=== PATIENT | female | born 1940 | race Caucasian/White ===

== ENCOUNTER 2017-05-05 20:42 | Inpatient (IN) | payer OTHER ==
--- NOTE | 2017-05-05 20:56 | PDOC ---
History of Present Illness - General History Source: Patient, Family (Son) Exam Limitations: No Limitations - History of Present Illness Initial Comments: 05/05/17 21:14 The patient is a 76 year old female with a significant past medical history of vertigo, HTN, HCL, and stomach cancer (treated), who presents to the ER with nausea, headache, and dizziness for two days. Patient is accompanied by son. As per son, the time of last known well was 19:00 last night. Since then, son has been noticing that patient is forgetting words and complained of nausea and dizziness. Patient woke up today with similar symptoms as last night. She states she took an extra medication of HTN earlier today without relief of symptoms. Son reports that patient has also complained of diffuse abdominal pain today. She states she has loss of appetite secondary to the symptoms and only had toast for the whole day. Denies numbness, paresthesia, weakness Denies syncope Denies trauma Denies fever, chills, cough Denies vomiting, diarrhea <Zully Ash - Last Filed: 05/05/17 21:39> <Dionna Cochran - Last Filed: 05/05/17 23:02> - General Chief Complaint: CVA/TIA Stated Complaint: DIZZY Time Seen by Provider: 05/05/17 20:52 Past History <Zully Ash - Last Filed: 05/05/17 21:39> - Past Medical History Cancer: Yes (STOMACH) HTN: Yes Hypercholesterolemia: Yes - Psycho/Social/Smoking Cessation Hx Suicidal Ideation: No Smoking History: Never smoked Have you smoked in the past 12 months: No Number of Cigarettes Smoked Daily: 0 Hx Alcohol Use: No Drug/Substance Use Hx: No <Dionna Cochran - Last Filed: 05/05/17 23:02> - Past Medical History Allergies/Adverse Reactions: Allergies Allergy/AdvReac Type Severity Reaction Status Date / Time sulfamethoxazole Allergy Verified 05/05/17 20:51 [From Bactrim] trimethoprim [From Bactrim] Allergy Verified 05/05/17 20:51 Home Medications: Ambulatory Orders Metoprolol Tartrate 25 mg PO BID 03/13/16 Rosuvastatin Calcium [Crestor] 10 mg PO DAILY 03/13/16 Meclizine HCl [Antivert -] 12.5 mg PO TID #21 tablet 03/14/16 Review of Systems - Review of Systems Comments:: 05/05/17 21:16 CONSTITUTIONAL: Present: (+) loss of appetite Absent: fever, chills, diaphoresis, generalized weakness, malaise HEENT: Absent: rhinorrhea, nasal congestion, throat pain, throat swelling, difficulty swallowing, mouth swelling, ear pain, eye pain, visual Changes CARDIOVASCULAR: Absent: chest pain, syncope, palpitations, irregular heart rate, lightheadedness , peripheral edema RESPIRATORY: Absent: cough, shortness of breath, dyspnea with exertion, orthopnea, wheezing, stridor, hemoptysis GASTROINTESTINAL: Present: (+) nausea (+) abdominal pain Absent: abdominal distension, vomiting, diarrhea, constipation, melena, hematochezia GENITOURINARY: Absent: dysuria, frequency, urgency, hesitancy, hematuria, flank pain, genital pain MUSCULOSKELETAL: Absent: myalgia, arthralgia, joint swelling SKIN: Absent: rash, itching, pallor HEMATOLOGIC/IMMUNOLOGIC: Absent: easy bleeding, easy bruising, lymphadenopathy, frequent infections ENDOCRINE: Absent: unexplained weight gain, unexplained weight loss, heat intolerance, cold intolerance NEUROLOGIC: Present: (+) Dizziness, (+) changes in speech (+) headache Absent: focal weakness or paresthesias, unsteady gait, seizure, mental status changes, bladder or bowel incontinence PSYCHIATRIC: Absent: anxiety, depression, suicidal or homicidal ideation, hallucinations. <Uts,Zully - Last Filed: 05/05/17 21:39> *Physical Exam - Vital Signs Last Vital Signs Temp Pulse Resp BP Pulse Ox 97.7 F 87 19 152/84 97 05/05/17 20:52 05/05/17 20:52 05/05/17 20:52 05/05/17 20:52 05/05/17 20:52 - Physical Exam Comments: 05/05/17 21:14 GENERAL: Well developed, well nourished. Appears anxious. Awake and alert to person, but not to place or time. Normocephalic, atraumatic. PERRLA, EOMI. No conjunctival pallor. Sclera are non- icteric. Moist mucous membranes. Oropharynx is clear. NECK: Supple. Full ROM. No JVD. Carotid pulses 2+ and symmetric, without bruits. No thyromegaly. No lymphadenopathy. CARDIOVASCULAR: Regular rate and rhythm. No murmurs, rubs, or gallops. Distal pulses are 2+ and symmetric. PULMONARY: No evidence of respiratory distress. Lungs clear to auscultation bilaterally. No wheezing, rales or rhonchi. ABDOMINAL: Romberg sign negative. Soft. Non-tender. Non-distended. No rebound or guarding. No organomegaly. Normoactive bowel sounds. MUSCULOSKELETAL Normal range of motion at all joints. No bony deformities or tenderness. No CVA tenderness. EXTREMITIES: No cyanosis. No clubbing. No edema. No calf tenderness. SKIN: Warm and dry. Normal capillary refill. No rashes. No jaundice. NEUROLOGICAL: Nose to nose exam normal. Cranial nerves 2-12 intact. No deficits to light touch and temperature in face, upper extremities and lower extremities. No motor deficits in the in face, upper extremities and lower extremities. Normoreflexic in the upper and lower extremities. Toes are down-going bilaterally. Gait is normal without ataxia. PSYCHIATRIC: Cooperative. Good eye contact. Appropriate mood and affect. <Zully Ash - Last Filed: 05/05/17 21:39> NIH Stroke Scale - Last Known Well Date/Time & Onset Date Last Known Well: 05/04/17 Time Last Known Well: 19:00 - Initial Evaluation Level of consciousness: Alert Ask patient the month and their age: Answers one correctly Ask patient to open & close eyes; make fist and let go: Obeys both correctly Best gaze (horizontal eye movement): Normal Visual field testing: No visual field loss Facial paresis (Show teeth/raise eyebrows/close eyes tight): Normal symmetrical movement Motor Function: Left Arm: Normal Motor Function: Right Arm: Normal (extends arm 90 (or 45) degrees for 10 seconds without drift Motor Function: Left Leg: Normal (extends leg 30 degrees for 5 seconds without drift) Motor Function: Right Leg: Normal (extends leg 30 degrees for 5 seconds without drift) Limb Ataxia: No ataxia Sensory(Use pinprick test arms,legs,trunk,face/side to side): Normal Best language (Describe picture, name items, read sentences): No Aphasia Dysarthria (read several words): Normal articulation Extinction and Inattention: No abnormality - Total Score NIH Stroke Scale Score: 1 <Dionna Cochran - Last Filed: 05/05/17 23:02> Critical Care Time/MDM Note Total Critical Care Time: 30 Critical Care Statement: The care of this patient involved high complexity decision making to prevent further life threatening deterioration of the patient 's condition and/or to evalute & treat vital organ system(s) failure or risk of failure. <Zully Ash - Last Filed: 05/05/17 21:39> - Medical Decision Making Note: 05/05/17 22:16 Patient Name: Anisha Pearson THIS IS A PRELIMINARY REPORT FROM [facility] IMAGES: 167 EXAM DATE AND TIME: 2017-05-05 20:57:46.0 EXAM: CT HEAD WITHOUT CONTRAST No acute brain parenchymal abnormality. No hemorrhage, mass or acute territorial infarct. Age-related involutional changes and chronic small vessel ischemic changes. Clear visualized paranasal sinuses. Visualized mastoid air cells clear. THIS DOCUMENT HAS BEEN ELECTRONICALLY SIGNED 05/05/17 22:16 Pt will be admitted to the hospitalist 05/05/17 22:17 EKG:NSR <Dionna Cochran - Last Filed: 05/05/17 23:02> Discharge Disposition <Zully sAh - Last Filed: 05/05/17 21:39> - Discharge Dispostion Admit: Yes <Dionna Cochran - Last Filed: 05/05/17 23:02> - Diagnosis Cerebrovascular accident (CVA), Vertigo, Confusion - Discharge Dispostion Condition at time of disposition: Guarded
[2017-05-05 21:06] VITALS: BMI 25.4
[2017-05-05] MEDS ORDERED: MECLIZINE HCL 25 MG TABLET (FP) PO ONE (21:12)
[2017-05-05] MEDS ORDERED: METOCLOPRAMIDE HCL INJECTION 10 MG/2 ML VIAL IVPB ONE (21:12)
[2017-05-05] MEDS ORDERED: MECLIZINE HCL 25 MG TABLET (FP) ONE (21:13)
[2017-05-05] MEDS ORDERED: SODIUM CHLORIDE 0.9% 500 ML INFUS.BAG IV ONE (21:13)
[2017-05-05] MEDS ORDERED: METOCLOPRAMIDE HCL INJECTION 10 MG/2 ML VIAL ONE (21:13)
[2017-05-05 21:46] LABS: BASOPHIL 0.8 % (0-2.0); EOSINOPHIL 0.3 % (0-4.5); MCH 33.2 pg (25.7-33.7); MCHC 33.8 g/dl (32.0-36.0); MEAN CELL VOLUME 98.3 fl (80-96); MEAN PLT VOLUME 8.1 fl (7.5-11.1); NEUTROPHILS 74.3 % (42.8-82.8); PLATELET COUNT 295 K/MM3 (134-434); RDW 12.3 % (11.6-15.6); WHITE BLOOD COUNT 13.6 K/mm3 (4.0-10.0)
[2017-05-05 22:12] LABS: ANION GAP 10 (8-16); CALCIUM 9.5 mg/dL (8.5-10.1); CO2 27 mmol/L (21-32); CREATININE 0.8 mg/dL (0.55-1.02); GLUCOSE,RANDOM 121 mg/dL (74-106); SGOT/AST 17 U/L (15-37); SGPT/ALT 25 U/L (12-78)
[2017-05-05 22:13] LABS: ALK PHOS 83 U/L (45-117); BILIRUBIN,TOTAL 0.8 mg/dL (0.2-1.0); INR 1.03 (0.82-1.09); PROTHROMBIN TIME (PATIENT) 11.3 SEC (9.98-11.88); TOT PROT 7.9 g/dl (6.4-8.2)
[2017-05-05] MEDS ORDERED: ACETAMINOPHEN 1000 MG/100 ML VIAL (NON FORMULARY) IVPB ONE (23:02)
[2017-05-05] MEDS ORDERED: ACETAMINOPHEN INJECTION 100 ML IVPB ONE (23:09)
--- NOTE | 2017-05-05 23:52 | PN ---
<Shantel Marie - Last Filed: 05/05/17 23:51> Teaching Attending Note Name of Resident: Shaan Pennington <Polo Christensen - Last Filed: 05/06/17 02:17> Teaching Attending Note ATTENDING PHYSICIAN STATEMENT I saw and evaluated the patient. I reviewed the resident's note and discussed the case with the resident. I agree with the resident's findings and plan as documented. SUBJECTIVE: The patient is a 76 year old female, accompanied by son, who presented to the ER with nausea, headache, and dizziness for two days. As per son, the patient was last known well at 19:00 last night. Since then, son has noticed that the patient is forgetting words and has complained of nausea and dizziness. She stated she took an extra dose of her HTN medication (Metoprolol) earlier today without relief of symptoms. Son reported that patient has also endorsed diffuse abdominal pain today. Patient endorsed decreased appetite secondary to the symptoms. Denied syncope Denied trauma Denied vomiting, diarrhea Denied fever, chills, cough Denied numbness, paresthesia, weakness Denied dysuria, hematuria, frequency, and hesitancy PAST MEDICAL HISTORY: HTN, HLD, Hypercholesterolemia, and stomach cancer ( treated) PAST SURGICAL HISTORY: No significant history reported FAMILY HISTORY: No pertinent history reported SOCIAL HISTORY: Denied history of smoking. Denied alcohol use. Denied recreational drug use. ALLERGIES: Sulfamethoxazole, trimethoprim MEDICATIONS: Reported taking an extra dose Metoprolol Tartrate (25 mg) OBJECTIVE: Last Vital Signs 3 Temp Pulse Resp BP Pulse Ox 97.7 F 74 20 156/64 96 05/05/17 20:52 05/05/17 21:46 05/05/17 21:46 05/05/17 21:46 05/05/17 21:51 Physical Examination: GENERAL: Awake, A&O x2, in no acute distress. HEENT: Atraumatic. PERRLA, EOMI. Moist mucosa. No JVD. No tongue or uvula deviation. LUNGS: No distress, speaks full sentences, clear to auscultation bilaterally HEART: Regular rate and rhythm, normal S1 and S2, no murmurs, rubs or gallops, peripheral pulses normal and equal bilaterally. ABDOMEN: Soft, nontender, normoactive bowel sounds. No guarding, no rebound. No masses EXTREMITIES: Normal inspection, Normal range of motion, no edema. No clubbing or cyanosis. 5/5 motor strength in upper and lower extremities. NEUROLOGICAL: Cranial nerves II through XII grossly intact. Normal speech, normal gait, no focal sensorimotor deficits SKIN: Warm, Dry, normal turgor, no rashes or lesions noted. Labs: CBCD 3 WBC 13.6 K/mm3 (4.0-10.0) H 05/05/17 21:30 RBC 4.49 M/mm3 (3.60-5.2) 05/05/17 21:30 Hgb 14.9 GM/dL (10.7-15.3) 05/05/17 21:30 Hct 44.1 % (32.4-45.2) 05/05/17 21:30 MCV 98.3 fl (80-96) H 05/05/17 21:30 MCHC 33.8 g/dl (32.0-36.0) 05/05/17 21:30 RDW 12.3 % (11.6-15.6) 05/05/17 21:30 Plt Count 295 K/MM3 (134-434) 05/05/17 21:30 MPV 8.1 fl (7.5-11.1) 05/05/17 21:30 CMP 3 Sodium 140 mmol/L (136-145) 05/05/17 21:30 Potassium 4.1 mmol/L (3.5-5.1) 05/05/17 21:30 Chloride 103 mmol/L (98-107) 05/05/17 21:30 Carbon Dioxide 27 mmol/L (21-32) 05/05/17 21:30 Anion Gap 10 (8-16) 05/05/17 21:30 BUN 15 mg/dL (7-18) 05/05/17 21:30 Creatinine 0.8 mg/dL (0.55-1.02) 05/05/17 21:30 Creat Clearance w eGFR > 60 (>60) 05/05/17 21:30 Calcium 9.5 mg/dL (8.5-10.1) 05/05/17 21:30 Total Bilirubin 0.8 mg/dL (0.2-1.0) 05/05/17 21:30 AST 17 U/L (15-37) 05/05/17 21:30 ALT 25 U/L (12-78) 05/05/17 21:30 Alkaline Phosphatase 83 U/L (45-117) 05/05/17 21:30 Total Protein 7.9 g/dl (6.4-8.2) 05/05/17 21:30 Albumin 4.0 g/dl (3.4-5.0) 05/05/17 21:30 Imaging: EXAM DATE AND TIME: 2017-05-05 20:57:46.0 EXAM: CT HEAD WITHOUT CONTRAST No acute brain parenchymal abnormality. No hemorrhage, mass or acute territorial infarct. Age-related involutional changes and chronic small vessel ischemic changes. Clear visualized paranasal sinuses. Visualized mastoid air cells clear. THIS DOCUMENT HAS BEEN ELECTRONICALLY SIGNED Lisa Clemens M.D. 2016 21:57 EST EXAM: CHEST X-RAY. Impression: Official report pending. ASSESSMENT AND PLAN : AMS secondary to UTI vs. CVA/TIA - Ceftriaxone 1 g IV QD - Rapid speech and swallow evaluation found to be negative - Mini mental status exam score of 25 - Neurology consult - MRI in AM - Follow up UA - Follow up TSH - Follow up carotid US - Follow up lipids - Follow up hemoglobin A1C Vertigo - Meclizine 12.5 mg PO TID HTN - Continue Metoprolol 25 mg PO BID HLD - Continue Crestor 10 mg PO QHS DVT PPX - SCDs - Ambulate Admit to med surg. Documentation prepared by Polo Christensen, acting as expert medical writer for Dr. Shantel Marie MD.
[2017-05-06] MEDS ORDERED: SODIUM CHLORIDE 1,000 ML IV SCH (00:15)
[2017-05-06 00:23] LABS: URINE APPEARANCE CLEAR; URINE BILIRUBIN NEGATIVE (NEGATIVE); URINE COLOR STRAW; URINE GLUCOSE (UA) NEGATIVE (NEGATIVE); URINE KETONE NEGATIVE (NEGATIVE); URINE NITRITE NEGATIVE (NEGATIVE); URINE PROTEIN NEGATIVE (NEGATIVE); URINE UROBILINOGEN NEGATIVE E.U./dl (0.2-1.0)
--- NOTE | 2017-05-06 00:25 | HP ---
CHIEF COMPLAINT: difficulty in remembering words, nausea, dizziness PCP: does not remember name, new PCP in [place] (former PCP retired) HISTORY OF PRESENT ILLNESS: 76 y/o F w/PMH of vertigo, HTN, HLD, stomach ca (treated in past) comes to ER due to difficulty in remembering words since this morning. Pt has also been having nausea and dizziness (described as feeling dizzy herself and not the room spinning) over the last 2 days which have not worsened or improved over the 2 days. Pt took twice her antihypertensives today with hopes that it would alleviate symptoms but it did not. She states she has been able to ambulate without issue over the last two days. This is the first time she has felt these symptoms of trouble remembering words. She denies vomiting, fevers, chills, chest pain, palpitations, irregular heart rate, sob, cough, peripheral swelling , dysuria, frequency, diarrhea, blood in urine, blood in stool, sick contacts, recent travel. At this time pt is able to speak in full sentences without issue. Pt is AAOX2 ( oriented to person and place), but son states she is usually mentally sharp and would know date. Nausea and dizziness relieved at this time. ER course was notable for: (1) Head CT, CXR (2) (3) Recent Travel: denies PAST MEDICAL HISTORY: vertigo, HTN, HLD, stomach ca (treated in past) PAST SURGICAL HISTORY: denies any past surgeries Social History: Smoking: denies Alcohol: denies Drugs: denies Family History: denies any past medical history in family Allergies sulfamethoxazole [From Bactrim] Allergy (Verified 05/05/17 20:51) - does not remember reaction trimethoprim [From Bactrim] Allergy (Verified 05/05/17 20:51) - does not remember reaction HOME MEDICATIONS: Home Medications Medication Instructions Recorded Metoprolol Tartrate 25 mg PO BID 03/13/16 Rosuvastatin Calcium [Crestor] 10 mg PO DAILY 03/13/16 Meclizine HCl [Antivert -] 12.5 mg PO TID #21 tablet 03/14/16 REVIEW OF SYSTEMS CONSTITUTIONAL: +loss of appetite Absent: fever, chills, diaphoresis, generalized weakness, malaise, weight change HEENT: Absent: ear pain, eye pain, visual changes CARDIOVASCULAR: Absent: chest pain, syncope, palpitations, irregular heart rate, lightheadedness , peripheral edema RESPIRATORY: Absent: cough, shortness of breath GASTROINTESTINAL: +nausea Absent: abdominal pain, vomiting, diarrhea, constipation, hematochezia GENITOURINARY: Absent: dysuria, frequency, hematuria, flank pain NEUROLOGIC: +dizziness, mental status change (difficulty remembering words) Absent: headache, focal weakness, unsteady gait PSYCHIATRIC: Absent: anxiety, depression PHYSICAL EXAMINATION Vital Signs - 24 hr 05/05/17 05/05/17 05/05/17 20:52 21:46 21:51 Temperature 97.7 F Pulse Rate 87 Pulse Rate [ 74 Right Radial] Respiratory 19 20 Rate Blood Pressure 152/84 Blood Pressure 156/64 [Right Arm] O2 Sat by Pulse 97 97 96 Oximetry (%) GENERAL: Awake, alert, oriented to person and place only HEAD: Normal with no signs of trauma. EYES: Pupils equal, round and reactive to light, extraocular movements intact, sclera anicteric, conjunctiva clear. No lid lag. EARS, NOSE, THROAT: Ears normal, nares patent, oropharynx clear without exudates. Moist mucous membranes. No tongue deviation, no uvula deviation. NECK: Normal range of motion, supple without lymphadenopathy. No thyromegaly. LUNGS: Breath sounds equal, clear to auscultation bilaterally. No wheezes, and no crackles. No accessory muscle use. HEART: Regular rate and rhythm, normal S1 and S2 without murmur, rub or gallop. ABDOMEN: Soft, nontender, not distended, normoactive bowel sounds, no guarding, no rebound, no masses. No hepatomegaly or splenomegaly. MUSCULOSKELETAL: No bony deformities or tenderness. No CVA tenderness. UPPER EXTREMITIES: warm, well-perfused. No peripheral edema. LOWER EXTREMITIES: warm, well-perfused. No calf tenderness. No peripheral edema. NEUROLOGICAL: B/L equal sensation to light touch on face, UE, LE. 5/5 motor strength in UE and LE. Normal speech. Gait not observed. PSYCHIATRIC: Cooperative. Good eye contact. Appropriate mood and affect. SKIN: Warm, dry Laboratory Results - last 24 hr 05/05/17 05/05/17 05/05/17 21:30 21:30 21:30 WBC 13.6 H RBC 4.49 Hgb 14.9 Hct 44.1 MCV 98.3 H MCHC 33.8 RDW 12.3 Plt Count 295 MPV 8.1 Neutrophils % 74.3 Lymphocytes % 15.3 Monocytes % 9.3 Eosinophils % 0.3 Basophils % 0.8 INR 1.03 PTT (Actin FS) 34.6 H Sodium Potassium Chloride Carbon Dioxide Anion Gap BUN Creatinine Creat Clearance w eGFR Random Glucose Calcium Total Bilirubin AST ALT Alkaline Phosphatase Total Protein Albumin 05/05/17 21:30 WBC RBC Hgb Hct MCV MCHC RDW Plt Count MPV Neutrophils % Lymphocytes % Monocytes % Eosinophils % Basophils % INR PTT (Actin FS) Sodium 140 Potassium 4.1 Chloride 103 Carbon Dioxide 27 Anion Gap 10 BUN 15 Creatinine 0.8 Creat Clearance w eGFR > 60 Random Glucose 121 H Calcium 9.5 Total Bilirubin 0.8 AST 17 ALT 25 Alkaline Phosphatase 83 Total Protein 7.9 Albumin 4.0 Imaging: Head CT:THIS IS A PRELIMINARY REPORT FROM [facility] IMAGES: 167 EXAM DATE AND TIME: 2017-05-05 20:57:46.0 EXAM: CT HEAD WITHOUT CONTRAST No acute brain parenchymal abnormality. No hemorrhage, mass or acute territorial infarct. Age-related involutional changes and chronic small vessel ischemic changes. Clear visualized paranasal sinuses. Visualized mastoid air cells clear. CXR: Cardiomegaly, two possible nodules in L lung field, f/u official read EKG: Normal sinus rhythm ASSESSMENT/PLAN: 76 y/o F w/PMH of vertigo, HTN, HLD, stomach ca (treated in past) comes to ER due to difficulty in remembering words since this morning. Admitted for AMS. -AMS secondary to infectious etiology (more likely) vs Stroke/TIA (less likely) -Head CT: no acute intracranial pathology -f/u UA -Case discussed with Dr. Hunter who agrees this is likely infectious in etiology but recommends MRI brain in AM to r/o stroke and to get repeat head CT if any changes occur in meantime. -f/u MRI brain, TSH, Carotid u/s, Lipids, A1C, official head CT read, official CXR read -Neurology consulted -ceftriaxone 1g IV qd -Bedside rapid swallow eval - no issues with swallowing small sips of water. No cough, no gag reflex. -Mini mental score: 25 -HTN -c/w metoprolol 25 mg po bid -HLD -c/w crestor 10 mg po qhs -Vertigo -meclizine 12.5 mg po tid -DVT ppx -SCDs, ambulate -FEN -NS @ 75 ml/hr -electrolytes wnl, monitor -Cardiac diet -Dispo -admit to tele Visit type - Emergency Visit Emergency Visit: Yes ED Registration Date: 05/05/17 Care time: The patient presented to the Emergency Department on the above date and was hospitalized for further evaluation of their emergent condition. - New Patient This patient is new to me today: Yes Date on this admission: 05/06/17 - Critical Care Critical Care patient: No
[2017-05-06 00:26] LABS: URINE BLOOD 1+ (NEGATIVE); URINE LEUK ESTERASE 1+ (NEGATIVE)
[2017-05-06 00:29] LABS: URINE BACTERIA MANY /hpf (NONE SEEN); URINE MUCUS RARE; URINE RBC 1 /hpf (0-3); URINE WBC 23 /hpf (3-5)
[2017-05-06] MEDS ORDERED: CEFTRIAXONE 1 GM in DEXTROSE 5%-WATER - 50 ML IVPB ONE ×2 (01:33→10:00)
[2017-05-06] MEDS: SODIUM CHLORIDE 1,000 ML IV SCH (02:20)
[2017-05-06] MEDS: cefTRIAXone 1 GM/50 ML BAG (PRE-DOCKED) IVPB SCH ×2 (02:48→22:14)
[2017-05-06] MEDS: METOPROLOL TARTRATE 25 MG TABLET (FP) PO SCH ×3 (02:48→22:14)
[2017-05-06 04:19] LABS: THYROID STIMULATING HORMONE 0.8 uIU/ml (0.358-3.74)
[2017-05-06] MEDS: MECLIZINE HCL 12.5 MG TABLET PO SCH ×3 (06:13→22:14)
[2017-05-06 07:47] LABS: ALBUMIN 3.4 g/dl (3.4-5.0); ANION GAP 9 (8-16); CALCIUM 8.5 mg/dL (8.5-10.1); CO2 27 mmol/L (21-32); GLUCOSE,RANDOM 88 mg/dL (74-106); SGOT/AST 14 U/L (15-37); SGPT/ALT 21 U/L (12-78)
[2017-05-06 07:49] LABS: ALK PHOS 72 U/L (45-117); BILIRUBIN,TOTAL 0.8 mg/dL (0.2-1.0); CREATININE 0.7 mg/dL (0.55-1.02); TOT PROT 6.8 g/dl (6.4-8.2)
[2017-05-06 07:58] LABS: MCH 34.4 pg (25.7-33.7); MCHC 34.2 g/dl (32.0-36.0); MEAN CELL VOLUME 100.5 fl (80-96); MEAN PLT VOLUME 8.2 fl (7.5-11.1); PLATELET COUNT 249 K/MM3 (134-434); RDW 12.6 % (11.6-15.6); WHITE BLOOD COUNT 9.8 K/mm3 (4.0-10.0)
--- NOTE | 2017-05-06 08:26 | PN ---
Teaching Attending Note Name of Resident: Shaan Pennington ATTENDING PHYSICIAN STATEMENT I saw and evaluated the patient. I reviewed the resident's note and discussed the case with the resident. I agree with the resident's findings and plan as documented. SUBJECTIVE: Patient continues to feel dizzy less than before. OBJECTIVE: Vital Signs Temperature 97.9 F 05/06/17 08:06 Pulse Rate 54 L 05/06/17 08:06 Respiratory Rate 18 05/06/17 08:10 Blood Pressure 143/60 05/06/17 08:06 O2 Sat by Pulse Oximetry (%) 97 05/06/17 08:10 GENERAL: Awake, alert, oriented x3 HEAD: Normal with no signs of trauma. EYES: Pupils equal, round and reactive to light, extraocular movements intact, sclera anicteric, conjunctiva clear. EARS, NOSE, THROAT: Ears normal, oropharynx clear without exudates. Moist mucous membranes. No tongue deviation, no uvula deviation. NECK: Normal range of motion, supple without lymphadenopathy. No thyromegaly. LUNGS: Breath sounds equal, clear to auscultation bilaterally. No wheezes, and no crackles. No accessory muscle use. HEART: Regular rate and rhythm, normal S1 and S2 without murmur, rub or gallop. ABDOMEN: Soft, nontender, not distended, normoactive bowel sounds, no guarding, no rebound, no masses. No hepatomegaly or splenomegaly. MUSCULOSKELETAL: No bony deformities or tenderness. No CVA tenderness. EXTREMITIES: warm, well-perfused. No peripheral edema. NEUROLOGICAL: B/L equal sensation to light touch on face, UE, LE. 5/5 motor strength in UE and LE. Normal speech. Gait not observed. PSYCHIATRIC: Cooperative. Good eye contact. Appropriate mood and affect. SKIN: Warm, dry, CBCD WBC 9.8 K/mm3 (4.0-10.0) 05/06/17 05:35 RBC 4.05 M/mm3 (3.60-5.2) 05/06/17 05:35 Hgb 13.9 GM/dL (10.7-15.3) 05/06/17 05:35 Hct 40.7 % (32.4-45.2) 05/06/17 05:35 MCV 100.5 fl (80-96) H 05/06/17 05:35 MCHC 34.2 g/dl (32.0-36.0) 05/06/17 05:35 RDW 12.6 % (11.6-15.6) 05/06/17 05:35 Plt Count 249 K/MM3 (134-434) 05/06/17 05:35 MPV 8.2 fl (7.5-11.1) 05/06/17 05:35 CMP Sodium 143 mmol/L (136-145) 05/06/17 05:35 Potassium 3.9 mmol/L (3.5-5.1) 05/06/17 05:35 Chloride 107 mmol/L (98-107) 05/06/17 05:35 Carbon Dioxide 27 mmol/L (21-32) 05/06/17 05:35 Anion Gap 9 (8-16) 05/06/17 05:35 BUN 13 mg/dL (7-18) 05/06/17 05:35 Creatinine 0.7 mg/dL (0.55-1.02) 05/06/17 05:35 Creat Clearance w eGFR > 60 (>60) 05/06/17 05:35 Random Glucose 88 mg/dL (74-106) D 05/06/17 05:35 Calcium 8.5 mg/dL (8.5-10.1) 05/06/17 05:35 Total Bilirubin 0.8 mg/dL (0.2-1.0) 05/06/17 05:35 AST 14 U/L (15-37) L 05/06/17 05:35 ALT 21 U/L (12-78) 05/06/17 05:35 Alkaline Phosphatase 72 U/L (45-117) 05/06/17 05:35 Total Protein 6.8 g/dl (6.4-8.2) 05/06/17 05:35 Albumin 3.4 g/dl (3.4-5.0) 05/06/17 05:35 Current Medications Generic Name Dose Route Start Last Admin Trade Name Freq PRN Reason Stop Dose Admin Ceftriaxone Sodium 1 gm 05/06/17 02:45 05/06/17 02:48 Rocephin 1gm Ivpb (Pre-Docked) IVPB 1 gm DAILY MONICA Administration Sodium Chloride 1,000 mls @ 75 mls/hr 05/06/17 01:34 05/06/17 02:20 Normal Saline - IV 75 mls/hr ASDIR MONICA Administration Meclizine HCl 12.5 mg 05/06/17 06:00 05/06/17 06:13 Antivert - PO 12.5 mg TID MONICA Administration Metoprolol Tartrate 25 mg 05/06/17 01:45 05/06/17 02:48 Lopressor - PO 25 mg BID MONICA Administration Rosuvastatin Calcium 10 mg 05/06/17 22:00 Crestor - PO HS [facility] Home Medications Medication Instructions Recorded Metoprolol Tartrate 25 mg PO BID 03/13/16 Rosuvastatin Calcium [Crestor] 10 mg PO DAILY 03/13/16 Meclizine HCl [Antivert -] 12.5 mg PO TID #21 tablet 03/14/16 Urine Test Results Urine Color Straw 05/06/17 00:17 Urine Appearance Clear 05/06/17 00:17 Urine pH 5.0 (5.0-8.0) 05/06/17 00:17 Ur Specific [place] <= 1.005 (1.005-1.025) 05/06/17 00:17 Urine Protein Negative (NEGATIVE) 05/06/17 00:17 Urine Glucose (UA) Negative (NEGATIVE) 05/06/17 00:17 Urine Ketones Negative (NEGATIVE) 05/06/17 00:17 Urine Blood 1+ (NEGATIVE) H 05/06/17 00:17 Urine Nitrite Negative (NEGATIVE) 05/06/17 00:17 Urine Bilirubin Negative (NEGATIVE) 05/06/17 00:17 Ur Leukocyte Esterase 1+ (NEGATIVE) H 05/06/17 00:17 Urine RBC 1 /hpf (0-3) 05/06/17 00:17 Urine WBC 23 /hpf (3-5) 05/06/17 00:17 Ur Epithelial Cells Rare /hpf (FEW) 05/06/17 00:17 Urine Bacteria Many /hpf (NONE SEEN) 05/06/17 00:17 Urine Mucus Rare 05/06/17 00:17 ASSESSMENT AND PLAN: 76 y/o F w/PMH of vertigo, HTN, HLD, stomach ca (treated in past) comes to ER due to difficulty in remembering words since this morning. Admitted for AMS. # Acute change of mental status improving. seen by neurologist ; Mri of the brain: reports mild periventricular and subcortical microvascular ischemic gliosis, no subdural fluid collection, no discrete mass lesion,mild ventricular dilatation. Carotid duplex is pending to r/o stenosis # Patient was started on IV antibiotic Rocephin for UTI; patient has no urinary symptoms and slight elevation of WBC which improved , received 2 doses of Rocpehin will Hold IV antibiotic for now. will monitor, will repeat cbc in am #HTN uncontrolled continue with metoprolol 25 mg po bid #HLD uncontrolled on crestor 10 mg po qhs #Vertigo on meclizine 12.5 mg po tid DVT ppx :SCDs, ambulate Discharge in am if duplex of cartotid is within NL range. physical therapy
--- NOTE | 2017-05-06 10:13 | EKG ---
Test Reason : Blood Pressure : / mmHG Vent. Rate : 079 BPM Atrial Rate : 079 BPM P-R Int : 150 ms QRS Dur : 104 ms QT Int : 380 ms P-R-T Axes : 069 -06 047 degrees QTc Int : 435 ms NORMAL SINUS RHYTHM VOLTAGE CRITERIA FOR LEFT VENTRICULAR HYPERTROPHY NONSPECIFIC ST AND T WAVE ABNORMALITY ABNORMAL ECG WHEN COMPARED WITH ECG OF 14-DEC-2004 09:22, NONSPECIFIC T WAVE ABNORMALITY NOW EVIDENT IN LATERAL LEADS Confirmed by BG BAUER MD ([id number]) on 05/06/2017 10:13:26 AM Referred By: Confirmed By:BG BAUER MD
--- NOTE | 2017-05-06 11:00 | CONSULT ---
Consult - text type - Consultation Consultation Note: Neurology History of Present Illness The patient is a 76 year old female with a significant past medical history of vertigo, HTN, HCL, and stomach cancer (treated), who presents to the ER with nausea, headache, and dizziness for two days. Patient woke up with similar symptoms and took an extra medication of HTN earlier today without relief of symptoms. According to notes, her son reported that patient has also complained of diffuse abdominal pain today. She states she has loss of appetite secondary to the symptoms and only had toast for the whole day. I was contacted at night by resident as patient had been having confusion and was alert, awake, and aware of person, place, but not date. Her Wbc count was elevated and UA suspicious for UTI. CT head without acute changes and most likely AMS 2/2 UTI, but advised MRI brain to rule out CVA. MRI completed this AM and awaiting read. Past History - Past Medical History Cancer: Yes (STOMACH) HTN: Yes Hypercholesterolemia: Yes - Psycho/Social/Smoking Cessation Hx Suicidal Ideation: No Smoking History: Never smoked Have you smoked in the past 12 months: No Number of Cigarettes Smoked Daily: 0 Hx Alcohol Use: No Drug/Substance Use Hx: No - Past Medical History Allergies/Adverse Reactions: Allergies Allergy/AdvReac Type Severity Reaction Status Date / Time sulfamethoxazole Allergy Verified 05/05/17 20:51 [From Bactrim] trimethoprim [From Bactrim] Allergy Verified 05/05/17 20:51 Home Medications: Ambulatory Orders Metoprolol Tartrate 25 mg PO BID 03/13/16 Rosuvastatin Calcium [Crestor] 10 mg PO DAILY 03/13/16 Meclizine HCl [Antivert -] 12.5 mg PO TID #21 tablet 03/14/16 Active Medications Ceftriaxone Sodium (Rocephin 1gm Ivpb (Pre-Docked)) 1 gm IVPB DAILY [facility] Last Admin: 05/06/17 02:48 Dose: 1 gm Sodium Chloride (Normal Saline -) 1,000 mls @ 75 mls/hr IV ASDIR [facility] Last Admin: 05/06/17 02:20 Dose: 75 mls/hr Meclizine HCl (Antivert -) 12.5 mg PO TID [facility] Last Admin: 05/06/17 06:13 Dose: 12.5 mg Metoprolol Tartrate (Lopressor -) 25 mg PO BID [facility] Last Admin: 05/06/17 09:47 Dose: 25 mg Rosuvastatin Calcium (Crestor -) 10 mg PO [facility] Review of Systems CONSTITUTIONAL: Present: (+) loss of appetite Absent: fever, chills, diaphoresis, generalized weakness, malaise HEENT: Absent: rhinorrhea, nasal congestion, throat pain, throat swelling, difficulty swallowing, mouth swelling, ear pain, eye pain, visual Changes CARDIOVASCULAR: Absent: chest pain, syncope, palpitations, irregular heart rate, lightheadedness , peripheral edema RESPIRATORY: Absent: cough, shortness of breath, dyspnea with exertion, orthopnea, wheezing, stridor, hemoptysis GASTROINTESTINAL: Present: (+) nausea (+) abdominal pain Absent: abdominal distension, vomiting, diarrhea, constipation, melena, hematochezia GENITOURINARY: Absent: dysuria, frequency, urgency, hesitancy, hematuria, flank pain, genital pain MUSCULOSKELETAL: Absent: myalgia, arthralgia, joint swelling SKIN: Absent: rash, itching, pallor HEMATOLOGIC/IMMUNOLOGIC: Absent: easy bleeding, easy bruising, lymphadenopathy, frequent infections ENDOCRINE: Absent: unexplained weight gain, unexplained weight loss, heat intolerance, cold intolerance NEUROLOGIC: Present: (+) Dizziness, (+) changes in speech (+) headache Absent: focal weakness or paresthesias, unsteady gait, seizure, mental status changes, bladder or bowel incontinence PSYCHIATRIC: Absent: anxiety, depression, suicidal or homicidal ideation, hallucinations. *Physical Exam Vital Signs Temperature 97.9 F 05/06/17 08:06 Pulse Rate 54 L 05/06/17 08:06 Respiratory Rate 18 05/06/17 08:10 Blood Pressure 143/60 05/06/17 08:06 O2 Sat by Pulse Oximetry (%) 97 05/06/17 08:10 Well developed, well nourished. Appears anxious. Awake and alert to person, but not to place or time. Normocephalic, atraumatic. PERRLA, EOMI. No conjunctival pallor. Sclera are non- icteric. Moist mucous membranes. Oropharynx is clear. NECK: Supple. Full ROM. No JVD. Carotid pulses 2+ and symmetric, without bruits. No thyromegaly. No lymphadenopathy. CARDIOVASCULAR: Regular rate and rhythm. No murmurs, rubs, or gallops. Distal pulses are 2+ and symmetric. PULMONARY: No evidence of respiratory distress. Lungs clear to auscultation bilaterally. No wheezing, rales or rhonchi. ABDOMINAL: Romberg sign negative. Soft. Non-tender. Non-distended. No rebound or guarding. No organomegaly. Normoactive bowel sounds. MUSCULOSKELETAL Normal range of motion at all joints. No bony deformities or tenderness. No CVA tenderness. EXTREMITIES: No cyanosis. No clubbing. No edema. No calf tenderness. SKIN: Warm and dry. Normal capillary refill. No rashes. No jaundice. NEUROLOGICAL: Nose to nose exam normal. Cranial nerves 2-12 intact. No deficits to light touch and temperature in face, upper extremities and lower extremities. No motor deficits in the in face, upper extremities and lower extremities. Normoreflexic in the upper and lower extremities. Toes are down-going bilaterally. Gait is normal without ataxia. PSYCHIATRIC: Cooperative. Good eye contact. Appropriate mood and affect. CT head reviewed MRI completed, prelim appears negative, awaiting official report from radiologist Plan: 76 year old female with a significant past medical history of vertigo, HTN, HCL , and stomach cancer (treated), who presents to the ER with nausea, headache, and dizziness for two days. Patient woke up with similar symptoms and took an extra medication of HTN earlier today without relief of symptoms. I was contacted at night by resident as patient had been having confusion and was alert, awake, and aware of person, place, but not date. Her Wbc count was elevated and UA suspicious for UTI. CT head without acute changes and most likely AMS 2/2 UTI, but advised MRI brain to rule out CVA. MRI completed this AM and awaiting read. IF MRI negative, would concentrate on management of UTI Increased hydration and PO intake recommended Blood pressure monitoring Vascular work up as per primary On statin Would consider adding ASA regardless, if no contraindications DVT ppx Meclezine PRN for dizzyness
[2017-05-06] MEDS ORDERED: ROSUVASTATIN CA 10 MG TABLET (FP) PO SCH (22:00)
[2017-05-07] MEDS: MECLIZINE HCL 12.5 MG TABLET PO SCH ×2 (05:22→13:43)
[2017-05-07] MEDS: cefTRIAXone 1 GM/50 ML BAG (PRE-DOCKED) IVPB SCH (09:59)
[2017-05-07] MEDS: METOPROLOL TARTRATE 25 MG TABLET (FP) PO SCH (10:00)
[2017-05-07] MEDS: SODIUM CHLORIDE 1,000 ML IV SCH (10:01)
[2017-05-07 10:14] LABS: BASOPHIL 0.5 % (0-2.0); EOSINOPHIL 2.2 % (0-4.5); MCH 34.2 pg (25.7-33.7); MCHC 34.5 g/dl (32.0-36.0); MEAN CELL VOLUME 99.2 fl (80-96); MEAN PLT VOLUME 7.8 fl (7.5-11.1); PLATELET COUNT 254 K/MM3 (134-434); RDW 12.6 % (11.6-15.6)
[2017-05-07 10:32] LABS: ANION GAP 8 (8-16); CALCIUM 8.6 mg/dL (8.5-10.1); CO2 27 mmol/L (21-32); CREATININE 0.8 mg/dL (0.55-1.02); GLUCOSE,RANDOM 133 mg/dL (74-106)
--- NOTE | 2017-05-07 18:00 | PN ---
Teaching Attending Note Name of Resident: Shon Serrano ATTENDING PHYSICIAN STATEMENT I saw and evaluated the patient. I reviewed the resident's note and discussed the case with the resident. I agree with the resident's findings and plan as documented. SUBJECTIVE: reported light headedness not vertigo at time of presentation ,. now feels back to base line . no CHACON , or dizziness , has no weakness , numbness or tingling OBJECTIVE: NAD CV : RRR Lungs : CTAB ext L : no edema Neuro : EOMI, symmetric face ,has nl facial sensation , tongue and uvula t mid line . strength 5/5 in upper and lwoer ext proximally and distally, 2+ knee jerk and biceps reflexes b/l nl sensation to light touch gait NL ASSESSMENT AND PLAN: 76 y/o F w/PMH of vertigo, HTN, HLD, stomach ca (treated in past) comes to ER due tolight headenedss, CHACON and difficulty remembering words 1- metabolic encephalopathy, likely due to UTI. resolved . has no sx now after treating UTI and hydrationg. MRI and carotid US reviewed. 2- UTI : unfortunately U cx was not sent before starting Abx . will send althoguth the yield is low now . cont with levaquin x 5 more days fro complicated UTI 3- HTN cont BB dispo : dc home today
[2017-05-07 18:16] VITALS: BP 157/59; PULSE 59; TEMP 97.7
--- NOTE | 2017-05-07 19:14 | DS ---
Physical Exam: SUBJECTIVE: Patient seen and examined at bedside. No overnight events. No new complaints. Feels better today. Back to baseline. Denies CP, CHACON, SOB, abd. pain , N/V. OBJECTIVE: Vital Signs Period Temp Pulse Resp BP Sys/Whitten Pulse Ox Last 24 Hr 97.2 F-98.8 F 59-78 16-20 140-160/59-81 97-97 PHYSICAL EXAM GENERAL: AAOx3 , NAD HEAD: NC/At EYES: PERRL, EOMI, sclera anicteric, conjunctiva clear. ENT: moist mucous membranes. NECK: supple, no jvd LUNGS: CTAB , no wheeze or rales. HEART:RRR, no m/g/r ABDOMEN: Soft,NT, ND , BS(+) EXTREMITIES: 2+ pulses, warm, well-perfused, no edema. NEUROLOGICAL: Cranial nerves II through XII grossly intact. 5/5 strength upper and lower ext. 2+DTR, Normal speech, normal gait. LABS Laboratory Results - last 24 hr 05/07/17 05/07/17 09:45 09:45 WBC 8.0 RBC 4.03 Hgb 13.8 Hct 40.0 MCV 99.2 H MCHC 34.5 RDW 12.6 Plt Count 254 MPV 7.8 Neutrophils % 58.0 D Lymphocytes % 28.0 D Monocytes % 11.3 H Eosinophils % 2.2 D Basophils % 0.5 Sodium 140 Potassium 3.7 Chloride 105 Carbon Dioxide 27 Anion Gap 8 BUN 23 H D Creatinine 0.8 Random Glucose 133 H D Calcium 8.6 HOSPITAL COURSE: 76 y/o F w/PMH of vertigo, HTN, HLD, Gastric lymphoma (s/p CHOP 2004) presented to ER with light headedness, CHACON and difficulty remembering words admitted altered mental status. MRI and Carotid were done and reveled no acute pathology. Assessed and cleared by Neurology. TSH within reference range. Metabolic encephalopathy likely secondary to acute UTI and started on IV abx. Her mental status returned to baseline with abx and volume expansion.She recieved 2 days of Ceftriaxone and given script for Levaquin for additional 5 days. Cultures were no done initially but sample taken before discharge with intent to contact her and her primary in event of resistance to PO abx. Her hypertension was managed with continuation metoprolol. Crestor continued for lipid management. Instructed to complete abx as directed and resume home meds including ASA. Follow up with primary in one week. Date of Admission:05/06/17 Date of Discharge: 05/07/17 Minutes to complete discharge: 42 Discharge Summary Reason For Visit: CVA, VERTIGO, CONFUSION Current Active Problems Confusion (Acute) UTI (urinary tract infection) (Acute) Cerebrovascular accident (CVA) (Chronic) HTN (hypertension) (Chronic) Vertigo (Chronic) Condition: Stable - Instructions Diet, Activity, Other Instructions: Follow up with your primary doctor in one week. - you have been given a prescription for Levaquin which is an antibiotic that you need to take once a day for 5 days. -Continue your home meds - metoprolol, crestor, and aspirin as directed. -Low sodium diet -Increase activity as tolerated. Referrals: Wendie Hodge MD [Non Staff, Medical] - 1 Week Disposition: HOME - Home Medications Comprehensive Discharge Medication List: Ambulatory Orders Metoprolol Tartrate 25 mg PO BID 03/13/16 Rosuvastatin Calcium [Crestor] 10 mg PO DAILY 03/13/16 Meclizine HCl [Antivert -] 12.5 mg PO TID #21 tablet 03/14/16 Aspirin [ASA -] 81 mg PO DAILY 05/07/17 Levofloxacin [Levaquin -] 500 mg PO DAILY #5 tablet 05/07/17 This patient is new to me today: Yes Date on this admission: 05/08/17 Emergency Visit: Yes ED Registration Date: 05/06/17 Care time: The patient presented to the Emergency Department on the above date and was hospitalized for further evaluation of their emergent condition. Critical Care patient: No - Discharge Referral Referred to [facility] No
== END 2017-05-07 19:38 | disposition home or self-care (01) | DRG 689 ==
LOC: JER 20:42 → JERBED 23:33 → OBSVTOIN 05-06 00:12 → J4W 05-06 02:17
PROVIDERS: ADMIT Internal Medicine; ATTEND Internal Medicine
DX: N39.0 Urinary tract infection, site not specified (principal); G93.41 Metabolic encephalopathy; I10 Essential (primary) hypertension; R42 Dizziness and giddiness; R41.0 Disorientation, unspecified; E78.5 Hyperlipidemia, unspecified; R41.82 Altered mental status, unspecified
CPT/HCPCS: 36415; 70450-TC; 70551-TC; 71010-TC; 80048; 80053; 80061; 81003; 81015; 83036; 83721; 84443; 85025; 85027; 85610; 85730; 87086; 93005; 93010; 93880-TC; 97116-GP; 97161-GP; 99285-25; G0378